=== PATIENT | female | born 1990 ===

== ENCOUNTER 2017-05-30 21:08 | Emergency (ER) | payer OTHER ==
[2017-05-30 21:16] VITALS: BP 126/64; PULSE 90; RESP 16; TEMP 98.7; O2SAT 100
--- NOTE | 2017-05-30 21:45 | ED PDOC ---
HPI: Back Time Seen by Provider: 05/30/17 21:35 Chief Complaint (Nursing): Back Pain Chief Complaint (Provider): Tailbone pain History Per: Patient History/Exam Limitations: no limitations Onset/Duration Of Symptoms: Days (3) Current Symptoms Are (Timing): Still Present Additional Complaint(s): Patient is a 27 y/o female with no significant past medical history presenting to the emergency department for tailbone pain following a fall two days ago. Reports that slipped at work and landed on her buttocks. The pain then began yesterday and now radiates to her hips. Notes that she vomited once yesterday due to the pain. Reports minimal relief of pain from Aleve. Denies nausea, fever , diarrhea, abdominal pain, blood in stool or urine, or other complaints. PCP: none provided. Past Medical History Reviewed: Historical Data Vital Signs: Last Vital Signs Temp 98.7 F 05/30/17 21:14 Pulse 90 05/30/17 21:14 Resp 16 05/30/17 21:14 BP 126/64 05/30/17 21:14 Pulse Ox 100 05/30/17 21:14 - Medical History PMH: No Chronic Diseases - Family History Family History: States: No Known Family Hx - Home Medications Home Medications: Ambulatory Orders Medication Instructions Recorded Cyclobenzaprine [Cyclobenzaprine 10 mg PO BID #14 tab 05/30/17 HCl] Ibuprofen [Motrin] 400 mg PO Q6 #30 tab 05/30/17 - Allergies Allergies/Adverse Reactions: Allergies Allergy/AdvReac Type Severity Reaction Status Date / Time Penicillins Allergy RASH Verified 05/30/17 21:14 Review of Systems ROS Statement: Except As Marked, All Systems Reviewed And Found Negative Gastrointestinal: Positive for: Vomiting (1 episode). Negative for: Nausea, Abdominal Pain, Diarrhea, Hematochezia Genitourinary Female: Negative for: Hematuria Musculoskeletal: Positive for: Other (Tailbone pain that radiates to hips) Physical Exam - Reviewed Nursing Documentation Reviewed: Yes - Physical Exam Appears: Positive for: Well, Non-toxic, No Acute Distress Head Exam: Positive for: ATRAUMATIC, NORMAL INSPECTION, NORMOCEPHALIC Skin: Positive for: Normal Color, Warm, Dry Eye Exam: Positive for: Normal appearance Neck: Positive for: Normal Cardiovascular/Chest: Positive for: Regular Rate, Rhythm Respiratory: Negative for: Accessory Muscle Use, Respiratory Distress Gastrointestinal/Abdominal: Positive for: Normal Exam, Bowel Sounds, Soft. Negative for: Tenderness Back: Positive for: Vertebral Tenderness (from L5 to S1, mild) Extremity: Positive for: Normal ROM (hips). Negative for: Tenderness (ischial tuberosity or interochanteric pain) Neurologic/Psych: Positive for: Alert, Oriented (x3) - ECG O2 Sat by Pulse Oximetry: 100 (RA) Pulse Ox Interpretation: Normal Medical Decision Making Medical Decision Making: Time: 21:39 Initial impression: Tailbone pain Initial plan: ED Urine X-ray sacrum and coccyx-negative. f/u wtih pmd flexril and motrin for pain ~ Scribe Attestation: Documented by Varsha Chakraborty, acting as a scribe for HOLLIE Howard. Provider Scribe Attestation: All medical record entries made by the Scribe were at my direction and personally dictated by me. I have reviewed the chart and agree that the record accurately reflects my personal performance of the history, physical exam, medical decision making, and the department course for this patient. I have also personally directed, reviewed, and agree with the discharge instructions and disposition. Disposition - Clinical Impression Clinical Impression: Sacral pain - Patient ED Disposition Is Patient to be Admitted: No Counseled Patient/Family Regarding: Need For Followup - Disposition Disposition: Routine/Home Disposition Time: 22:55 Condition: STABLE Prescriptions: Cyclobenzaprine [Cyclobenzaprine HCl] 10 mg PO BID #14 tab Ibuprofen [Motrin] 400 mg PO Q6 #30 tab Instructions: Back Pain (ED) Forms: [employer] (Sammarinese)
--- NOTE | 2017-05-31 08:30 | RAD ---
PROCEDURE: Radiographs of the Sacrum and Coccyx HISTORY: direct injury COMPARISON: None available. TECHNIQUE: Frontal and lateral views of the sacrum and coccyx FINDINGS: BONES: Sacrum and coccyx unremarkable. No fracture or focal lesion. SACROILIAC JOINTS: Unremarkable. OTHER FINDINGS: None. IMPRESSION: Unremarkable radiographs of the sacrum and coccyx.
== END 2017-05-30 23:08 | disposition home or self-care (01) ==
LOC: H.ER 21:08
DX: M54.5 Low back pain (principal); M53.3 Sacrococcygeal disorders, not elsewhere classified; Z88.0 Allergy status to penicillin

== ENCOUNTER 2018-02-24 17:48 | Emergency (ER) | payer MEDICAID, OTHER ==
[2018-02-24 17:52] VITALS: O2SAT 99
[2018-02-24] MEDS ORDERED: Lidocaine 5% Patch TD STA (18:04)
[2018-02-24] MEDS ORDERED: Lidocaine 5% Patch TD ONE (18:05)
[2018-02-24 18:27] LABS: SQUAMOUS EPITHIAL 3 /hpf (0-5); URINE BACTERIA OCC (<OCC); URINE BILIRUBIN NEGATIVE (NEGATIVE); URINE BLOOD NEGATIVE (NEGATIVE); URINE CLARITY SLIGHTY-CLOUDY (Clear); URINE COLOR YELLOW (YELLOW); URINE GLUCOSE (UA) NEG (Normal); URINE LEUKOCYTE ESTERASE NEG Leu/uL (Negative); URINE PROTEIN NEGATIVE (NEGATIVE); URINE UROBILINOGEN 0.2-1.0 mg/dL (0.2-1.0)
[2018-02-24] MEDS ORDERED: Ciprofloxacin 400mg/200ml D5W 400 MG/200 ML BAG IVPB STA (19:21)
[2018-02-24] MEDS ORDERED: Ciprofloxacin 400mg/200ml D5W 400 MG/200 ML BAG IVPB ONE (20:15)
[2018-02-24 20:18] LABS: BASO # 0.1 K/uL (0.0-0.2); EOS # 0.5 K/uL (0.0-0.7); EOS % 7.2 % (0.0-4.0); LYMPH # 2.7 K/uL (1.0-4.3); LYMPH % 41.4 % (20.0-40.0); MEAN CELL VOLUME 80.9 fl (81.0-99.0); MEAN CORPUSCULAR HEMOGLOBIN 26.9 pg (27.0-31.0); MEAN CORPUSCULAR HGB CONC 33.3 g/dL (33.0-37.0); MEAN PLATELET VOLUME 8.2 fl (7.2-11.7); MONO # 0.5 K/uL (0.0-0.8); MONO % 7.6 % (0.0-10.0); NEUT # 2.8 K/uL (1.8-7.0); NEUT % 42.8 % (50.0-75.0); NRBC % 0.1 % (0.0-0.0); RBC 4.46 Mil/uL (3.80-5.20); RED CELL DISTRIBUTION WIDTH 14.3 % (11.5-14.5); WHITE BLOOD COUNT 6.5 K/uL (4.8-10.8)
[2018-02-24 20:24] LABS: ALB/GLOB RATIO 1.3 (1.0-2.1); ALBUMIN 3.9 g/dL (3.5-5.0); ALT/SGPT 27 U/L (9-52); AST/SGOT 22 U/L (14-36); BLOOD UREA NITROGEN 15 mg/dl (7-17); CALCIUM 8.7 mg/dL (8.4-10.2); GFR AFRICAN-AMERICAN > 60; GFR NON-AFRICAN AMERICAN > 60
[2018-02-24 21:05] VITALS: BP 125/75; PULSE 81; RESP 15; TEMP 98.1
--- NOTE | 2018-02-24 21:31 | ED PDOC ---
HPI: Back Time Seen by Provider: 02/24/18 17:53 Chief Complaint (Nursing): Back Pain Chief Complaint (Provider): Back Pain History Per: Patient History/Exam Limitations: no limitations Onset/Duration Of Symptoms: Days (x4-5) Current Symptoms Are (Timing): Still Present Additional Complaint(s): 28 y/o female with no significant PMHx presenting for evaluation of back pain x4 -5 days. Patient states for the past 4-5 days shes had atraumatic lower and mid back pain. She reports she does a lot of heavy lifting at work, but denies any injury. She states the pain is non-radiating and has no alleviating or exacerbating factors. She states she had an MRI 5-6 years ago which showed she had a herniated disc in her lower back. She denies any hematuria, dysuria, incontinence, abdominal pain, nausea, vomiting, fever, or chest pain. PMD: Non-[facility] Provider Past Medical History Reviewed: Historical Data, Nursing Documentation, Vital Signs Vital Signs: Last Vital Signs Temp 98.1 F 02/24/18 21:04 Pulse 81 02/24/18 21:04 Resp 15 02/24/18 21:04 BP 125/75 02/24/18 21:04 Pulse Ox 99 02/24/18 21:04 - Medical History PMH: No Chronic Diseases - Surgical History Surgical History: No Surg Hx - Family History Family History: States: Unknown Family Hx - Home Medications Home Medications: Ambulatory Orders Medication Instructions Recorded Cyclobenzaprine [Cyclobenzaprine 10 mg PO BID #14 tab 05/30/17 HCl] Ibuprofen [Motrin] 400 mg PO Q6 #30 tab 05/30/17 Ciprofloxacin [Cipro] 500 mg PO BID #14 tab 02/24/18 Naproxen [Naprosyn] 500 mg PO BID PRN #30 tab 02/24/18 Phenazopyridine [Pyridium] 100 mg PO BID #6 tab 02/24/18 - Allergies Allergies/Adverse Reactions: Allergies Allergy/AdvReac Type Severity Reaction Status Date / Time Penicillins Allergy RASH Verified 05/30/17 21:14 Review of Systems ROS Statement: Except As Marked, All Systems Reviewed And Found Negative Constitutional: Negative for: Fever Cardiovascular: Negative for: Chest Pain Gastrointestinal: Negative for: Nausea, Vomiting, Abdominal Pain Genitourinary Female: Negative for: Dysuria, Incontinence, Hematuria Musculoskeletal: Positive for: Back Pain Physical Exam - Reviewed Nursing Documentation Reviewed: Yes Vital Signs Reviewed: Yes - Physical Exam Appears: Positive for: Non-toxic, No Acute Distress Cardiovascular/Chest: Positive for: Regular Rate, Rhythm. Negative for: Murmur Respiratory: Positive for: Normal Breath Sounds. Negative for: Respiratory Distress Gastrointestinal/Abdominal: Positive for: Normal Exam, Soft. Negative for: Tenderness Back: Positive for: Normal Inspection. Negative for: L CVA Tenderness, R CVA Tenderness, Vertebral Tenderness Neurologic/Psych: Positive for: Alert, Oriented (x3) - Laboratory Results Result Diagrams: 02/24/18 20:07 02/24/18 20:07 - ECG O2 Sat by Pulse Oximetry: 99 (RA) Pulse Ox Interpretation: Normal Medical Decision Making Medical Decision Makin:04 Plan: -Urine -Flexeril 10mg PO -Lidocaine 5% -Toradol 30mg IM -X-Ray dorsal spine -X-Ray lumbar spine -Urinalysis -Reevaluation UA shows positive nitrates due to symptoms of back pain. CT abdomen and IV Cipro ordered. CT abd/pelvis w/o contrast: 1. Circumferential bladder wall thickening is suggestive of cystitis. 2. Moderate amount of gas and stool in the colon. Pt. informed of results. Pt. in no distress. No CVA tenderness b/l. Scribe Attestation: Documented by Vadim Magaña, acting as a scribe for Eduardo Iyer PA-C. Provider Scribe Attestation: All medical record entries made by the scribe were at my direction and personally dictated by me. I have reviewed the chart and agree that the record accurately reflects my personal performance of the history, physical exam, medical decision making, and the department course for this patient. I have also personally directed, reviewed, and agree with the discharge instructions and disposition. Disposition - Clinical Impression Clinical Impression: UTI (urinary tract infection) - Patient ED Disposition Is Patient to be Admitted: No Counseled Patient/Family Regarding: Studies Performed, Diagnosis, Need For Followup, Rx Given - Disposition Referrals: [facility] [place] [Outside] [facility] [Outside] Disposition: Routine/Home Disposition Time: 21:04 Condition: IMPROVED Additional Instructions: FLORINA HOUSER, thank you for letting us take care of you today. Your provider was Felicia Willams MD and you were treated for BACK PAIN. The emergency medical care you received today was directed at your acute symptoms. If you were prescribed any medication, please fill it and take as directed. It may take several days for your symptoms to resolve. Return to the Emergency Department if your symptoms worsen, do not improve, or if you have any other problems. Please contact your doctor or call one of the physicians/clinics you have been referred to that are listed on the Patient Visit Information form that is included in your discharge packet. Bring any paperwork you were given at discharge with you along with any medications you are taking to your follow up visit. Our treatment cannot replace ongoing medical care by a primary care provider outside of the emergency department. Thank you for allowing the [facility] team to be part of your care today. If you had an X-Ray or CT scan: A Radiologist will review the ED reading if any change in treatment is needed we will contact you. If you had a blood, urine, or wound culture: It will take several days for the results, if any change in treatment is needed we will contact you. If you had an STI test: It will take 48 hours for the results. Please call after 1 week if you have not heard back. Prescriptions: Ciprofloxacin [Cipro] 500 mg PO BID #14 tab Naproxen [Naprosyn] 500 mg PO BID PRN #30 tab PRN Reason: Pain Phenazopyridine [Pyridium] 100 mg PO BID #6 tab Instructions: Urinary Tract Infection, Adult (DC) Forms: [employer] (Ukrainian), [facility] ED School/Work Excuse Print Language: ANGOLAN
--- NOTE | 2018-02-25 07:58 | RAD ---
Date of service: 02/24/2018 HISTORY: pain COMPARISON: No prior. FINDINGS: BONES: Alignment maintained. No fracture. DISC SPACES: Normal. SOFT TISSUES: Normal. OTHER FINDINGS: None. IMPRESSION: Unremarkable radiographs of the thoracic spine.
--- NOTE | 2018-02-25 08:00 | RAD ---
Date of service: 02/24/2018 PROCEDURE: Radiographs of the Lumbar Spine. HISTORY: pain COMPARISON: No prior. FINDINGS: BONES: Normal alignment. No listhesis. No fracture. DISC SPACES: Unremarkable. OTHER FINDINGS: None. IMPRESSION: Unremarkable radiographs of the lumbar spine.
--- NOTE | 2018-02-25 10:01 | CT ---
Date of service: 02/24/2018 PROCEDURE: CT Abdomen and Pelvis without intravenous contrast HISTORY: UTI b/l upper back pain COMPARISON: None. TECHNIQUE: Helical CT of the abdomen and pelvis was performed without oral or intravenous contrast as per referring physician request. Contrast dose: None Radiation dose: Total exam DLP = 211.10 mGy-cm. This CT exam was performed using one or more of the following dose reduction techniques: Automated exposure control, adjustment of the mA and/or kV according to patient size, and/or use of iterative reconstruction technique. FINDINGS: LOWER THORAX: A tiny subpleural calcified granuloma left lower lobe with lung bases otherwise unremarkable bilaterally. LIVER: Unremarkable. No gross lesion or ductal dilatation. GALLBLADDER AND BILE DUCTS: Unremarkable. PANCREAS: Unremarkable. No gross lesion or ductal dilatation. SPLEEN: Unremarkable. ADRENALS: Unremarkable. No mass. KIDNEYS AND URETERS: There is no radiodense urolithiasis, obstructive uropathy or perinephric reaction bilaterally. Kidneys appear homogeneous in overall density throughout. Urinary bladder appears unremarkable as well. VASCULATURE: Unremarkable. No aortic aneurysm. BOWEL: The stomach is distended with retained food. No obstruction. No gross mural thickening. APPENDIX: Unremarkable. Normal appendix. PERITONEUM: Unremarkable. No free fluid. No free air. LYMPH NODES: Unremarkable. No enlarged lymph nodes. BLADDER: The urinary bladder is not fully distended and evaluation of the urinary bladder wall is incomplete. Thickening is not excluded. REPRODUCTIVE: Tampon identified within the endometrial cavity. BONES: No acute fracture. OTHER FINDINGS: None. IMPRESSION: No obstructive uropathy, radiodense urolithiasis or perinephric reaction. Urinary bladder is not fully distended and is incomplete in evaluation. Cystitis is difficult to completely exclude though this is not favored. Further evaluation of the remaining abdominal pelvic versus limited due lack of oral and intravenous contrast administration. No definite acute findings appreciable grossly. Concordant preliminary report from [facility], 02/24/2018.
== END 2018-02-24 21:05 | disposition home or self-care (01) ==
LOC: H.ER 17:48
DX: N30.90 Cystitis, unspecified without hematuria (principal); Z88.0 Allergy status to penicillin
CPT/HCPCS: 72070; 72100; 74176; 80053; 81003; 81025; 85025; 87040; 87086; 96372; 99284; J0744; J1885

== ENCOUNTER 2018-03-05 08:38 | Observation (INO) | payer MEDICAID ==
[2018-03-05 08:47] VITALS: BMI 21.4
--- NOTE | 2018-03-05 09:36 | ED PDOC ---
HPI: Female Pain Time Seen by Provider: 03/05/18 09:13 Chief Complaint (Nursing): Female Genitourinary Chief Complaint (Provider): pelvic pain History Per: Patient History/Exam Limitations: no limitations Onset/Duration Of Symptoms: Days Current Symptoms Are (Timing): Still Present Additional Complaint(s): Pt. came to the ER 1.5 weeks approx for left back pain and right lower pelvic pain. Had Ct and urine eval. Dx with uti and given cipro. She was called several days later and antibiotics changed to macrobid due to sensitivities. Pt. here as she still has left back pain and right pelvic pain. No dysuria, hematuria. No freq of urination. No chest pain, dyspnea, weakness, dizziness, fever. Past Medical History Reviewed: Nursing Documentation, Vital Signs Vital Signs: Last Vital Signs Temp 97.8 F 03/05/18 08:47 Pulse 69 03/05/18 08:47 Resp 16 03/05/18 08:47 BP 121/72 03/05/18 08:47 Pulse Ox 100 03/05/18 08:47 - Medical History PMH: No Chronic Diseases - Surgical History Surgical History: No Surg Hx - Family History Family History: States: Unknown Family Hx - Home Medications Home Medications: Ambulatory Orders Medication Instructions Recorded Cyclobenzaprine [Cyclobenzaprine 10 mg PO BID #14 tab 05/30/17 HCl] Ibuprofen [Motrin] 400 mg PO Q6 #30 tab 05/30/17 Ciprofloxacin [Cipro] 500 mg PO BID #14 tab 02/24/18 Naproxen [Naprosyn] 500 mg PO BID PRN #30 tab 02/24/18 Phenazopyridine [Pyridium] 100 mg PO BID #6 tab 02/24/18 Nitrofurantoin Macrocrystals 100 mg PO BID #14 cap 02/27/18 [Macrobid] - Allergies Allergies/Adverse Reactions: Allergies Allergy/AdvReac Type Severity Reaction Status Date / Time Penicillins Allergy RASH Verified 05/30/17 21:14 Review of Systems ROS Statement: Except As Marked, All Systems Reviewed And Found Negative Gastrointestinal: Positive for: Abdominal Pain Genitourinary Female: Positive for: Pelvic Pain Musculoskeletal: Positive for: Back Pain Physical Exam - Reviewed Nursing Documentation Reviewed: Yes Vital Signs Reviewed: Yes - Physical Exam Appears: Positive for: Non-toxic, No Acute Distress Head Exam: Positive for: ATRAUMATIC, NORMAL INSPECTION, NORMOCEPHALIC Skin: Positive for: Normal Color, Warm, DRY Eye Exam: Positive for: EOMI, Normal appearance, PERRL ENT: Positive for: Normal ENT Inspection Neck: Positive for: Normal, Painless ROM Cardiovascular/Chest: Positive for: Regular Rate, Rhythm Respiratory: Positive for: CNT, Normal Breath Sounds Gastrointestinal/Abdominal: Positive for: Soft, Tenderness (R lower pelvic) Back: Positive for: Normal Inspection, L CVA Tenderness (mild). Negative for: R CVA Tenderness Extremity: Positive for: Normal ROM. Negative for: Tenderness, Pedal Edema Neurologic/Psych: Positive for: Alert, Oriented - Laboratory Results Result Diagrams: 03/05/18 10:45 03/05/18 10:45 Interpretation Of Abn Labs: no acute - ECG O2 Sat by Pulse Oximetry: 100 - CT Scan/US US Other Rad Studies (CT/US): Read By Radiologist Other Rad Interpretation: no acute - Progress ED Course And Treament: 940: CT from previous shows no appendix issues or kidney stones. Pt. with continued issues. Will check blood work and urine. Pt. sensitive to macrobid and is on it. 1304: Still uncomfortable and vomiting. Sensitive to cefepime. Will give that and Dr. Schaefer aware and will admit. Disposition - Clinical Impression Clinical Impression: UTI (urinary tract infection), Intractable abdominal pain, Vomiting - Patient ED Disposition Is Patient to be Admitted: Yes Counseled Patient/Family Regarding: Studies Performed, Diagnosis - Disposition Disposition Time: 12:10 Condition: FAIR - Pt Status Changed To: Hospital Disposition Of: Observation - POA Present On Arrival: None
[2018-03-05 11:05] LABS: BASO % 0.3 % (0.0-2.0); EOS # 0.1 K/uL (0.0-0.7); EOS % 1.1 % (0.0-4.0); LYMPH # 1.3 K/uL (1.0-4.3); LYMPH % 16.3 % (20.0-40.0); MEAN CELL VOLUME 81.7 fl (81.0-99.0); MEAN CORPUSCULAR HEMOGLOBIN 27.1 pg (27.0-31.0); MEAN CORPUSCULAR HGB CONC 33.2 g/dL (33.0-37.0); MEAN PLATELET VOLUME 8.7 fl (7.2-11.7); MONO # 0.3 K/uL (0.0-0.8); MONO % 3.9 % (0.0-10.0); NEUT # 6.2 K/uL (1.8-7.0); NEUT % 78.4 % (50.0-75.0); NRBC % 0.1 % (0.0-0.0); RBC 4.78 Mil/uL (3.80-5.20); RED CELL DISTRIBUTION WIDTH 14.1 % (11.5-14.5); WHITE BLOOD COUNT 7.9 K/uL (4.8-10.8)
[2018-03-05 11:10] LABS: ALB/GLOB RATIO 1.2 (1.0-2.1); ALBUMIN 4.4 g/dL (3.5-5.0); ALT/SGPT 25 U/L (9-52); AST/SGOT 33 U/L (14-36); BLOOD UREA NITROGEN 15 mg/dl (7-17); CALCIUM 8.9 mg/dL (8.4-10.2); GFR AFRICAN-AMERICAN > 60; GFR NON-AFRICAN AMERICAN > 60
--- NOTE | 2018-03-05 12:15 | US ---
Date of service: 03/05/2018 HISTORY: Pelvic pain COMPARISON: None available. TECHNIQUE: Transvaginal pelvic ultrasound was performed. FINDINGS: UTERUS: Measures 6.4 x 3.2 x 4.3 cm. Anteverted, normal in size and appearance. No fibroid or other mass lesion seen. ENDOMETRIUM: Measures 3.0 mm in diameter. The central endometrial echo complex is normal in appearance. CERVIX: No cervical abnormality identified. RIGHT OVARY: Measures 2.9 x 1.5 x 2.6 cm. No solid mass. Normal flow. LEFT OVARY: Measures 3.0 x 1.8 x 2.3 cm. No solid mass. Normal flow. There is a 1.5 x 0.8 x 1.3 cm dominant follicle/ cyst. FREE FLUID: There is small amount of free fluid in the pelvis, likely physiologic. OTHER FINDINGS: None. IMPRESSION: Unremarkable pelvic ultrasound.
[2018-03-05 16:13] LABS: SQUAMOUS EPITHIAL 1 /hpf (0-5); URINE AMORPHOUS SEDIMENT RARE /ul (<OCC); URINE BACTERIA RARE (<OCC); URINE BILIRUBIN NEGATIVE (NEGATIVE); URINE BLOOD NEGATIVE (NEGATIVE); URINE CLARITY CLOUDY (Clear); URINE COLOR YELLOW (YELLOW); URINE GLUCOSE (UA) NEG (Normal); URINE LEUKOCYTE ESTERASE NEG Leu/uL (Negative); URINE PROTEIN NEGATIVE (NEGATIVE); URINE UROBILINOGEN 0.2-1.0 mg/dL (0.2-1.0)
[2018-03-05] MEDS ORDERED: Dextrose 5%/0.45% NS 1,000 ML IV SCH (18:30)
[2018-03-05] MEDS ORDERED: Cefepime 1 GM in Sodium Chloride 0.9% 100 ML IVPB SCH (21:00)
[2018-03-05 22:40] VITALS: RESP 20
--- NOTE | 2018-03-06 05:51 | HP ---
Copied To: Steven Schaefer MD Attending MD: Steven Schaefer MD SUBJECTIVE: Ms. Pierre Connolly is a 28-year-old female who was admitted via the emergency room because of intractable abdominal pain, nausea for the past 1 week, worse on the day of admission. She had been seen in the emergency room in the past, treated for urinary tract infection with Cipro. She was called back several days later due to poor sensitivities from the Cipro and was placed on Macrobid. The patient had indicated that she had developed left back pain and right pelvic pain with dysuria and hematuria and was back in the hospital where she was admitted with intractable abdominal pain. PAST MEDICAL HISTORY: She has an unremarkable past medical history. FAMILY HISTORY: Noncontributory. SOCIAL HISTORY: She does not drink or smoke. REVIEW OF SYSTEMS: Essentially unremarkable. PHYSICAL EXAMINATION: GENERAL: The patient is alert, oriented, appears to be in some distress because of abdominal pain. VITAL SIGNS: Remarkable for blood pressure of 121/72, pulse of 69, respiratory rate of 60. He is febrile. O2 sat 100% on room air. SKIN: Shows fair turgor. Pupils are equal and reactive to light and accommodation. MOUTH: Shows fair hygiene. NECK: JVP flat. LUNGS: Clear. HEART: Regular. No murmurs or gallop. ABDOMEN: Soft with some left upper quadrant tenderness and also suprapubic tenderness. GENITAL AND RECTAL: Deferred. CENTRAL NERVOUS SYSTEM: Grossly intact. LABORATORY DATA: WBC 7.9, hemoglobin 13, platelet count 238,000. Sodium 142, potassium 3.7, BUN 15, creatinine 0.7, serum glucose 98. Transvaginal ultrasound is essentially unremarkable. IMPRESSION: Intractable abdominal pain due to urinary tract infection which has been nonresponsive to outpatient therapy. PLAN: IV hydration and analgesics for pain. We would continue IV antibiotic with Vibramycin. If clinically stable, we will probably discharge in a.m. and follow up as an outpatient. Steven Schaefer MD
[2018-03-06 06:14] VITALS: O2SAT 100
[2018-03-06 09:18] VITALS: BP 114/68; PULSE 71; TEMP 98.7
--- NOTE | 2018-03-06 10:47 | CP.PCM.DIS ---
Provider - Provider Date of Admission: 03/05/18 13:11 Attending physician: Steven Schaefer MD Time Spent in preparation of Discharge (in minutes): 30 Diagnosis - Discharge Diagnosis (1) Intractable abdominal pain Status: Acute (2) UTI (urinary tract infection) Status: Acute Hospital Course - Lab Results Lab Results: Most Recent Lab Values WBC 7.9 K/uL (4.8-10.8) 03/05/18 10:45 RBC 4.78 Mil/uL (3.80-5.20) 03/05/18 10:45 Hgb 13.0 g/dL (12.0-16.0) 03/05/18 10:45 Hct 39.0 % (34.0-47.0) 03/05/18 10:45 MCV 81.7 fl (81.0-99.0) 03/05/18 10:45 MCH 27.1 pg (27.0-31.0) 03/05/18 10:45 MCHC 33.2 g/dL (33.0-37.0) 03/05/18 10:45 RDW 14.1 % (11.5-14.5) 03/05/18 10:45 Plt Count 238 K/uL (130-400) 03/05/18 10:45 MPV 8.7 fl (7.2-11.7) 03/05/18 10:45 Neut % (Auto) 78.4 % (50.0-75.0) H 03/05/18 10:45 Lymph % (Auto) 16.3 % (20.0-40.0) L 03/05/18 10:45 [place] % (Auto) 3.9 % (0.0-10.0) 03/05/18 10:45 Eos % (Auto) 1.1 % (0.0-4.0) 03/05/18 10:45 Baso % (Auto) 0.3 % (0.0-2.0) 03/05/18 10:45 Neut # (Auto) 6.2 K/uL (1.8-7.0) 03/05/18 10:45 Lymph # (Auto) 1.3 K/uL (1.0-4.3) 03/05/18 10:45 [place]aney # (Auto) 0.3 K/uL (0.0-0.8) 03/05/18 10:45 Eos # (Auto) 0.1 K/uL (0.0-0.7) 03/05/18 10:45 Baso # (Auto) 0.0 K/uL (0.0-0.2) 03/05/18 10:45 Sodium 142 mmol/l (132-148) 03/05/18 10:45 Potassium 3.7 MMOL/L (3.6-5.0) 03/05/18 10:45 Chloride 104 mmol/L (98-107) 03/05/18 10:45 Carbon Dioxide 25 mmol/L (22-30) 03/05/18 10:45 Anion Gap 17 (10-20) 03/05/18 10:45 BUN 15 mg/dl (7-17) 03/05/18 10:45 Creatinine 0.7 mg/dl (0.7-1.2) 03/05/18 10:45 Est GFR ( Amer) > 60 03/05/18 10:45 Est GFR (Non-Af Amer) > 60 03/05/18 10:45 Random Glucose 98 mg/dL (65-105) 03/05/18 10:45 Calcium 8.9 mg/dL (8.4-10.2) 03/05/18 10:45 Total Bilirubin 0.4 mg/dl (0.2-1.3) 03/05/18 10:45 AST 33 U/L (14-36) 03/05/18 10:45 ALT 25 U/L (9-52) 03/05/18 10:45 Alkaline Phosphatase 70 U/L (38-126) 03/05/18 10:45 Total Protein 8.0 G/DL (6.3-8.2) 03/05/18 10:45 Albumin 4.4 g/dL (3.5-5.0) 03/05/18 10:45 Globulin 3.6 gm/dL (2.2-3.9) 03/05/18 10:45 Albumin/Globulin Ratio 1.2 (1.0-2.1) 03/05/18 10:45 Urine Color Yellow (YELLOW) 03/05/18 15:50 Urine Clarity Cloudy (Clear) 03/05/18 15:50 Urine pH 7.0 (5.0-8.0) 03/05/18 15:50 Ur Specific [place] 1.020 (1.003-1.030) 03/05/18 15:50 Urine Protein Negative mg/dL (NEGATIVE) 03/05/18 15:50 Urine Glucose (UA) Neg mg/dL (Normal) 03/05/18 15:50 Urine Ketones 20 mg/dL (NEGATIVE) 03/05/18 15:50 Urine Blood Negative (NEGATIVE) 03/05/18 15:50 Urine Nitrate Negative (NEGATIVE) 03/05/18 15:50 Urine Bilirubin Negative (NEGATIVE) 03/05/18 15:50 Urine Urobilinogen 0.2-1.0 mg/dL (0.2-1.0) 03/05/18 15:50 Ur Leukocyte Esterase Neg Chris/uL (Negative) 03/05/18 15:50 Urine RBC (Auto) 2 /hpf (0-3) 03/05/18 15:50 Urine Microscopic WBC 3 /hpf (0-5) 03/05/18 15:50 Ur Squamous Epith Cells 1 /hpf (0-5) 03/05/18 15:50 Amorphous Sediment Rare /ul (<OCC) H 03/05/18 15:50 Urine Bacteria Rare (<OCC) 03/05/18 15:50 - Hospital Course Hospital Course: ABDOMINAL PAIN RESOLVED Discharge Exam - Head Exam Head Exam: ATRAUMATIC, NORMAL INSPECTION, NORMOCEPHALIC - Eye Exam Eye Exam: EOMI, Normal appearance, PERRL Pupil Exam: NORMAL ACCOMODATION, PERRL - GI/Abdominal Exam GI & Abdominal Exam: Normal Bowel Sounds - Rectal Exam Rectal Exam: NORMAL INSPECTION - Neurological Exam Neurological exam: Alert, CN II-XII Intact, Normal Gait, Oriented x3, Reflexes Normal - Psychiatric Exam Psychiatric exam: Normal Affect, Normal Mood - Skin Skin Exam: Dry, Intact, Normal Color, Warm Discharge Plan - Follow Up Plan Condition: IMPROVED Disposition: HOME/ ROUTINE Patient education suggested?: Yes Instructions: Urinary Tract Infections in Adults, How to Wash Your Hands Properly, Staying Safe in the Hospital Additional Instructions: DISCHARGE TODAY FOLLOW UP WITH SAFE AND VAULT MECHANIC OR UROLOGIST
== END 2018-03-06 12:30 | disposition home or self-care (01) ==
LOC: H.ER 08:38 → H.ERHOLD 13:11 → H.PEDS 17:05
PROVIDERS: ADMIT Internal Medicine Pulmonary Disease; ATTEND Internal Medicine Pulmonary Disease
DX: N39.0 Urinary tract infection, site not specified (principal); Z88.0 Allergy status to penicillin
CPT/HCPCS: 76830; 80053; 81003; 81025; 85025; 87040; 87086; 99285; C9113; G0378; J2405; J7042